=== PATIENT | female | born 1950 | race African-American/Black ===

== ENCOUNTER 2016-11-15 15:43 | Emergency (ER) | payer OTHER ==
[~2016-11-15] VITALS: Ht 154.9 cm; Wt 57.6 kg
--- NOTE | ~2016-11-15 | EKG ---
[address] [address] ELECTROCARDIOGRAM REPORT Name: JEREMIAS LEHMAN Room #: [facility] M.RSu#: [id number] Admission: Attend Phys: Discharge: Date of : 52 Report #: [id number] THIS REPORT FOR: //name// [facility] ED Test Date: 2016-11-15 Test Time: 16:03:09 Pat Name: JEREMIAS LEHMAN Department: Room: Gender: F Quality Control Engineer: TOBIN : 1950 Requested By: Lilli Sanches Order Number: [id number] MD: Measurements Intervals [place] Rate: 84 P: -7 [place]: 104 QRS: 24 QRSD: 77 T: 10 QT: 404 QTc: 478 Interpretive Statements Sinus rhythm Short [place] interval No previous ECG available for comparison [email or web address] By: 1603 1603 Epiphany MD Elsa /EPI
[2016-11-15] MEDS ORDERED: NORVASC 5 MG TAB5 MG PO (15:54)
[2016-11-15] MEDS ORDERED: NEURONTIN 300300 M1 PO (15:55)
[2016-11-15] MEDS ORDERED: SEROQUEL 50 MG50 MG PO (15:56)
[2016-11-15] MEDS ORDERED: TRAZODONE HCL100 MG PO (15:56)
[2016-11-15 16:09] LABS: HEMOGLOBIN 13.1 gm/dL (12.0-15.0); MCH 30.8 pg (26.0-34.0); MCHC 33.5 g/dL (28.0-37.0); MCV 91.9 fL (80.0-100.0); PLATELET COUNT 278 thou/uL (150-400); RBC 4.24 mil/uL (4.20-5.00); RDW 14.2 % (10.5-14.5)
[2016-11-15 16:10] LABS: MANUAL DIFF YES
[2016-11-15 16:15] LABS: CALCIUM 8.9 mg/dL (8.5-10.1); POTASSIUM 3.3 mmol/L (3.5-5.1)
[2016-11-15] MEDS ORDERED: NORCO 5-325 TA1 EACH PO (16:26)
[2016-11-15 16:32] LABS: ABSOLUTE NEUTROPHILS 3.6 thou/uL (1.4-8.2); TOTAL CELL COUNT 100
[2016-11-15 16:34] LABS: ANISOCYTOSIS 1+
[2016-11-15 16:35] LABS: POLYCHROMASIA OCCASIONAL
[2016-11-15 16:44] VITALS: BP 128/52
== END 2016-11-15 16:45 | disposition home or self-care (01) ==
LOC: ER 15:43
PROVIDERS: Emergency Medicine
DX: M62.830 Muscle spasm of back (principal); E87.6 Hypokalemia; F17.210 Nicotine dependence, cigarettes, uncomplicated; Z88.6 Allergy status to analgesic agent

== ENCOUNTER 2020-01-18 19:50 | Inpatient (IN) | payer OTHER ==
[~2020-01-18] VITALS: Ht 154.9 cm; Wt 70.3 kg
[~2020-01-18 19:50] MED LIST: NEURONTIN 300300 M1 PO; NORCO 5-325 TA1 EACH PO; NORVASC 5 MG TAB5 MG PO; SEROQUEL 50 MG50 MG PO; TRAZODONE HCL100 MG PO
[2020-01-18 20:34] VITALS: BP 156/58
[2020-01-18 21:03] LABS: ABSOLUTE NEUTROPHILS 2.9 thou/uL (1.4-8.2); EOSINOPHILS 1.1 % (0.0-3.0); HEMATOCRIT 37.8 % (37.0-47.0); HEMOGLOBIN 12.5 gm/dL (12.0-15.0); MCH 32.6 pg (26.0-34.0); MCHC 33.1 g/dL (28.0-37.0); MCV 98.3 fL (80.0-100.0); MONOCYTES 10.5 % (1.0-8.0); PLATELET COUNT 212 thou/uL (150-400); POLYS 52.4 % (36.0-66.0); RBC 3.84 mil/uL (4.20-5.00); RDW 14.6 % (10.5-14.5); WBC 5.6 thou/uL (4.0-11.0)
[2020-01-18 21:07] LABS: ANION GAP 7 mmol/L (7-16); BUN 9 mg/dL (7-18); CALCIUM 7.6 mg/dL (8.5-10.1); CHLORIDE 102 mmol/L (98-107); CO2 27 mmol/L (21-32); GLUCOSE 75 mg/dL (74-106); POTASSIUM 3.7 mmol/L (3.5-5.1); SODIUM 136 mmol/L (136-145)
[2020-01-18 21:14] LABS: APTT 24.5 Seconds (24.5-32.8); PROTIME 10.5 Seconds (9.3-11.4)
[2020-01-18 21:21] LABS: ALBUMIN 3.2 g/dL (3.4-5.0); SGOT 18 U/L (15-37); SGPT 12 U/L (30-65); TOTAL BILIRUBIN 0.6 mg/dL (0.2-1.0); TOTAL PROTEIN 6.6 g/dL (6.4-8.2)
[2020-01-18 21:25] LABS: DIRECT BILIRUBIN < 0.1 mg/dL (<0.1-0.2)
[2020-01-18 22:13] VITALS: BP 155/76
[2020-01-18 22:24] VITALS: BP 156/74
[2020-01-18 22:43] VITALS: BP 190/80
[2020-01-18 23:00] VITALS: BP 180/57
--- NOTE | 2020-01-18 23:20 | NUR ---
PT ADMIT FROM ER FOR STROKE. REPORTS SHE WOKE UP AND HER RIGHT SIDE OF ARM WAS WEAK. SLUR SPEECH NOTED. AND SLIGHT FACIAL DROOPING NOTED. BLOOD PRESSURE IS HIGH SHE REPORTS SHE DIDNT TAKE HER BLOOD PRESSURE MEDICAION TODAY. NIH SCORE IS 4. CALL LIGHT WITHIN REACH IF NEEDS ASSISTANCE. FALL SOCKS ON AND FALL CONTRACT SIGNED FOR ADMISSION. DENIES ANY PAIN AT THIS TIME. WILL CONTINUE TO ASSESS AND MONITOR PER NURSING
[2020-01-19 00:08] LABS: CHOLESTEROL 153 mg/dL (<200); SERUM ASSESSMENT Clear
[2020-01-19 00:09] LABS: HDL CHOLESTEROL 64 mg/dL (>40); LDL CHOLESTEROL 71 mg/dL (<100); TC:HDL 2.4 Ratio (Not establshd); TRIGLYCERIDE 93 mg/dL (<150); VLDL 19 mg/dL (<40)
[2020-01-19 02:20] VITALS: BP 123/45
[2020-01-19 03:49] VITALS: BP 162/57
[2020-01-19 04:00] LABS: HEMATOCRIT 37.4 % (37.0-47.0); HEMOGLOBIN 12.3 gm/dL (12.0-15.0); MCH 32.5 pg (26.0-34.0); MCHC 32.9 g/dL (28.0-37.0); MCV 98.8 fL (80.0-100.0); RBC 3.79 mil/uL (4.20-5.00); RDW 14.4 % (10.5-14.5); WBC 6.7 thou/uL (4.0-11.0)
[2020-01-19 05:28] LABS: CALCIUM 7.7 mg/dL (8.5-10.1); CREATININE 0.9 mg/dL (0.6-1.0); MAGNESIUM 1.9 mg/dL (1.8-2.4); POTASSIUM 3.7 mmol/L (3.5-5.1)
[2020-01-19 07:39] VITALS: BP 148/62
--- NOTE | 2020-01-19 09:35 | EKG ---
[facility] [place] [address] ELECTROCARDIOGRAM REPORT Name: JEREMIAS LEHMAN Room #: 217-P ADM IN M.R.#: [id number] Admission: 01/18/20 Attend Phys: Anuj Young MD Discharge: Date of : 52 Report #: [id number] THIS REPORT FOR: cc: Yodit Rios Diane C. DO Couchonnal, Luis F. MD ~ THIS REPORT FOR: //name// [facility] ED Test Date: 2020-01-18 Test Time: 20:37:35 Pat Name: JEREMIAS LEHMAN Department: Room: 217 Gender: F Drilling Field Professional: [id number] : 1950 Requested By: Ailin Jane Order Number: [id number] MD: Gee Qureshi Measurements Intervals [place] Rate: 75 P: 70 [place]: 134 QRS: 60 QRSD: 85 T: 43 QT: 409 QTc: 457 Interpretive Statements Sinus rhythm Baseline wander in lead(s) I Compared to ECG 11/15/2016 16:03:09 Short [place] interval no longer present Electronically Signed On 01-19-2020 9:33:24 CDT by Gee Qureshi [email or web address] <ELECTRONICALLY SIGNED> By: Gee Qureshi MD 01/19/2033 36 36 Gee Qureshi MD /EPI
[2020-01-19 11:32] VITALS: BP 125/53
[2020-01-19 15:24] VITALS: BP 127/50
--- NOTE | 2020-01-19 19:34 | NUR ---
ASSUMED CARE OF PATIENT AT 0700. ASSESSMENT CHARTED. PATIENT DENIES ANY RIGHT SIDED NUMBNESS/LOSS OF SENSATION, FACIAL DROOPING OR SLURRED SPEECH. SR ON TELE. NICOTINE PATCH REQUESTED, PATIENT IS A 7 CIGARETTE/DAY SMOKER. MRI ORDERED, PATIENT HAS SCREWS IN NECK FROM CERVICAL SURGERY. PATIENT STEADY ON FEET BUT STILL ASKED TO CALL OUT FOR GETTING UP, BED ALARM SET. SPEECH EVAL DONE, NO STRAWS TO BE USED WITH MECH/SOFT CHOPPED DIET. PATIENT LEFT PARTIAL AT HOME. PATIENT DOES NOT WANT TO STAY, WANTS TO GET HOME TO HER DOG. SPOKE WITH PATIENT'S DAUGHTER WHO ENCOURAGED PATIENT TO STAY. PATIENT TO CONTINUE WITH POC.
[2020-01-19 20:10] VITALS: BP 128/73
--- NOTE | 2020-01-19 23:31 | NUR ---
ASSESSMENTS CHARTED, MEDS GIVEN CHARTED. PATIENT RESTING IN BED DURING SHIFT. DOES NOT WANT TO STAY, WANTS TO BE HOME WITH HER FAMILY AND DOG. DAY NURSE CONVINCES TO STAY THROUGH NIGHT. DUE TO RESULTS FROM MRI OF HEAD, A CONSULT WITH DR. ALFONSO HAS BEEN STARTED. CVA AFFECTS HAVE RESOLVED. FALL PRECAUTIONS IN PLACE. DENIES PAIN.
[2020-01-20 00:01] VITALS: BP 112/61
[2020-01-20 05:05] VITALS: BP 139/57
[2020-01-20 05:38] LABS: GLYCOHEMOGLOBIN (HGB A1C) 5.2 % (4.8-5.6)
[2020-01-20 07:29] VITALS: BP 144/53
[2020-01-20 11:31] VITALS: BP 135/50
[2020-01-20 15:23] VITALS: BP 132/54
--- NOTE | 2020-01-20 19:31 | NUR ---
ASSUMED CARE OF PATIENT AT 0700. ASSESSMENT COMPLETED. NIH ZERO. EQUAL UE STRENGTH, NO SLURRED SPEECH, NO FACIAL DROOPING. SR ON TELE. NICOTINE PATCH ON LEFT SHOULDER, PATIENT NOTES "HELP OF PATCH" LAST NIGHT. PATIENT SEEN BY DR. ALFONSO AND WILL FOLLOW UP OUTPATIENT. DR. ORTIZ ORDERED ECHO, US CAROTIDS AND CARDIOLOGY CONSULT FOR EVENT MONITOR TO R/O SILENT AFIB TO BE DONE TUESDAY A.M. PATIENT INITIALLY REFUSED TO STAY AND SAID SHE WOULD LEAVE AMA. PATIENT'S DAUGHTER TALKED HER INTO STAYING. PATIENT TO CONTINUE WITH POC.
[2020-01-20 19:58] VITALS: BP 135/53
[2020-01-21 05:47] VITALS: BP 135/52
--- NOTE | 2020-01-21 06:15 | NUR ---
ASSESSMENTS CHARTED, MEDS GIVEN CHARTED. PATIENT RESTING IN ROOM DURING SHIFT. PATIENT NOT WANTING TO STAY AT START OF SHIFT, SHE WAS UNDER THE IMPRESSIION THAT SHE WOULD BE GOING HOME AFTER HER CONSULT WITH DR. ALFONSO, BUT PROCEDURES ARE SCHEDULED FOR THE AM. TO HAVE AN ECHO AND EVENT MONITOR PLACED. DENIED PAIN OR CONCERNS DURING SHIFT.
[2020-01-21 08:00] VITALS: BP 150/56; BP 162/83
--- NOTE | 2020-01-21 08:34 | EKG ---
[facility] Mans[address] [facility] [place] [address] ELECTROCARDIOGRAM REPORT Name: JEREMIAS LEHMAN Room #: 217-P ADM IN M.R.#: [id number] Admission: 01/18/20 Attend Phys: Javier Christopher MD Discharge: Date of : 52 Report #: [id number] THIS REPORT FOR: cc: Yodit Rios,Yodit Sanchez,Brent Lassiter MD [facility] ~ THIS REPORT FOR: //name// [facility] Test Date: 2020-01-21 Test Time: 07:55:57 Pat Name: JEREMIAS LEHMAN Department: Room: 217 P Gender: F General Distillery Worker: Aishwarya SORIANO : 1950 Requested By: Aspen Tate Order Number: [id number] MD: Brent Michael Measurements Intervals [place] Rate: 53 P: 70 RI: 152 QRS: 56 QRSD: 84 T: 35 QT: 477 QTc: 448 Interpretive Statements Sinus bradycardia Anteroseptal infarct, age indeterminate Compared to ECG 01/18/2020 20:37:35 Septal Q waves are now present Electronically Signed On 01-21-2020 8:32:05 CDT by Brent Michael [email or web address] <ELECTRONICALLY SIGNED> By: Brent Michael MD, [facility] 01/21/20 0832 [id number] [id number] Brent Michael MD, [facility] /EPI
[2020-01-21 12:00] VITALS: BP 122/53
--- NOTE | 2020-01-21 12:24 | HC ---
[facility] [place] [address] CONSULTATION Name: JEREMIAS LEHMAN Room #: 217-P ADM IN M.R.#: [id number] Admission: 01/18/20 Attend Phys: Javier Christopher MD Discharge: Date of : 52 Report #: [id number] THIS REPORT FOR: cc: Yodit Rios,Kt Jenkins MD ~ CC: Yodit Christopher DATE OF SERVICE: 01/20/2020 We were asked by Dr. Reed to see the patient. HISTORY OF PRESENT ILLNESS: The patient is a 69-year-old admitted 01/18/2020 with right upper extremity and lower extremity weakness and right-sided facial drooping and slurred speech. CT scan was negative for any acute abnormality, but CT angiogram showed a 50% stenosis at the origin of the left internal carotid and the MRI showed a small acute lacunar infarct. The patient was noted to be relatively hypertensive at the time of admission. Over the course of the hospitalization, the patient states that her symptoms have abated and that she is close to normal. PAST MEDICAL HISTORY: Significant for hypertension, anxiety, and depression. ALLERGIES: The patient states she is allergic to ASPIRIN. Specifically, the patient states that years ago she took an aspirin and this made her dizzy and that she is unwilling to take aspirin here too in the future. The patient denies diabetes to me. MEDICATIONS AT HOME: Amlodipine, gabapentin, Seroquel, trazodone. SOCIAL HISTORY: The patient is a smoker at home. REVIEW OF SYSTEMS: CONSTITUTIONAL: Denies fever, chills, weight change. EYES: Denies vision changes. HEENT: Denies headache, earache. Nose or throat discomfort. RESPIRATORY: Denies cough, shortness of breath, hemoptysis. CARDIAC: Denies chest pain, palpitations. GASTROINTESTINAL: Denies nausea, vomiting, diarrhea, blood. GENITOURINARY: Denies urgency, frequency, or blood. 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 NEUROLOGIC: Denies other motor or sensory dysfunction other than the pain in the right breast. [address] [address] CONSULTATION Name: JEREMIAS LEHMAN Room #: 217-[facility] IN ..#: [id number] Admission: 01/18/20 Attend Phys: Javier Christopher MD Discharge: Date of : 52 Report #: [id number] SKIN: Denies rash or infection. ENDOCRINE: Denies goiter or palpitations. PHYSICAL EXAMINATION: GENERAL: The patient is in bed, seems comfortable. VITAL SIGNS: Temperature 36.9, pulse rate 72, respiratory rate 16, blood pressure 132/54. HEENT: No scleral icterus, no arcus. NECK: No mass. I do not hear any bruit, but I cannot get the patient to hold her breath. CHEST: Clear to auscultation. HEART: Rhythm regular. I do not hear any murmurs. ABDOMEN: Soft, somewhat protuberant, no mass. EXTREMITIES: Distal pulses palpable. No clubbing, cyanosis or edema. NEUROLOGIC: No obvious motor or sensory dysfunction. IMPRESSION: I have reviewed CT scan. There is a stenosis at the origin of the left internal carotid. This does not appear to be a high-grade, but it is very focal. I would recommend obtaining a duplex evaluation to see if there is any high frequency associated with this. There is either a prominent carotid bulb or poststenotic dilatation. In any event, the duplex may be able to help define the stenosis better, especially as this appears to be a lacunar infarct, anticoagulation what appeared to be the proper approach for this less than high-grade, but the duplex may help with this assessment. Thank you for the consult. <ELECTRONICALLY SIGNED> By: Kt Spain MD 01/21/20 1224 [id number] [id number] Kt Spain MD /nt
--- NOTE | 2020-01-21 13:28 | 2DMMODE ---
[address] [address] 2 D/M-MODE ECHOCARDIOGRAM Name: JEREMIAS LEHMAN Room #: 217-P ADM IN M.R.#: [id number] Admission: 01/18/20 Attend Phys: Javier Christopher MD Discharge: Date of : 52 Report #: [id number] THIS REPORT FOR: cc: Yodit Rios,Brent Ruth MD [facility] ~ APPROVED REPORT Study performed: 01/21/2020 11:41:15 EXAM: Comprehensive 2D, Doppler, and color-flow Echocardiogram Patient Location: Bedside Room #: [facility] Status: routine BSA: 1.67 HR: 78 bpm BP: 150/56 mmHg Rhythm: NSR Other Information Study Quality: Adequate Indications CVA/TIA Hypertension/HDD Echo Enhancing Agent Indication: Rule out Shunt Agent(s) / Amount(s) Used: Agitated Saline 7 cc Agitated Saline 7 cc 2D Dimensions IVC: 21.00 mm Volumes Left Atrial Volume (Systole) LA ESV Index: 24.00 mL/m2 Tricuspid Valve PA Pressure: 44.00 mmHg Left Ventricle The left ventricle is normal size. There is normal LV segmental wall motion. There is normal left ventricular wall thickness. The left [address] [address] 2 D/M-MODE ECHOCARDIOGRAM Name: JEREMIAS LEHMAN Room #: [facility] ADM IN M.R.#: [id number] Admission: 01/18/20 Attend Phys: Javier Christopher MD Discharge: Date of : 52 Report #: [id number] ventricular systolic function is normal. The left ventricular ejection fraction is within the normal range. LVEF is 55-60%. The left ventricular diastolic function is normal. Right Ventricle The right ventricle is normal size. The right ventricular systolic function is normal. Atria The left atrium size is normal. No shunting by contrast bubble injection The right atrium size is normal. Aortic Valve The aortic valve is normal in structure. No aortic regurgitation is present. There is no aortic valvular stenosis. Mitral Valve The mitral valve is normal in structure. Mild mitral regurgitation. No evidence of mitral valve stenosis. Tricuspid Valve The tricuspid valve is normal in structure. There is mild tricuspid regurgitation. Estimated PAP 40 mmHg. Pulmonic Valve The pulmonary valve is normal in structure. There is no pulmonic valvular regurgitation. Great Vessels The aortic root is normal in size. IVC is dilated and collapses >50% with inspiration. Pericardium There is no pericardial effusion. <Conclusion> The left ventricular systolic function is normal. There is normal LV segmental wall motion. LVEF is 55-60%. Normal diastolic function No shunting by contrast bubble injection The aortic valve is normal in structure. No aortic regurgitation or stenosis The mitral valve is normal in structure. Mild mitral regurgitation. There is mild tricuspid regurgitation. Estimated pulmonary artery [facility] [address] [place] [address] 2 D/M-MODE ECHOCARDIOGRAM Name: MATTEO LEHMANGARFIELD Martino Room #: 217-P ADM IN M.R.#: [id number] Admission: 01/18/20 Attend Phys: Javier Christopher MD Discharge: Date of : 52 Report #: [id number] pressure of 40 mmHg. There is no pericardial effusion. <ELECTRONICALLY SIGNED> By: Brent Michael MD, FACC 01/21/20 1325 24 24 Bernt Michael MD, FACC /INF
--- NOTE | 2020-01-21 15:24 | NUR ---
ASSUMED CARE OF PT AT CHANGE OF SHIFT. PT ALERT X4, DENIES PAIN, DENIES SOB, COMPLETED US CAROTID AND ECHO COMPLETED SEE REPORT. CARDIOLOGY PLACED AN EVENT MONITOR. PT EDUCATED TO HAVE AN OUTPATIENT STRESS TEST. PT TO DC HOME WITH SELF CARE. NSR ON TELE. DC PAPER WORK REVIEWED IV AND TELE REMOVED.
[2020-01-21] MEDS ORDERED: PLAVIX 75 MG TA75 M1 PO (15:32)
[2020-01-21] MEDS ORDERED: LIPITOR 20 MG T20 M1 PO (15:32)
[2020-01-21] MEDS ORDERED: AMLODIPINE BESY10 MG PO (15:33)
[2020-01-21 15:56] VITALS: BP 122/53
--- NOTE | 2020-01-21 18:41 | HC ---
[facility] [place] [address] CONSULTATION Name: JEREMIAS LEHMAN Room #: 217-P [facility] IN .R.#: [id number] Admission: 01/18/20 Attend Phys: Javier Christopher MD Discharge: 01/21/20 Date of : 52 Report #: [id number] THIS REPORT FOR: cc: Yodit Rios,Finn Saucedo MD ~ CC: Anuj Rios DATE OF SERVICE: 01/19/2020 HISTORY OF PRESENT ILLNESS: A 69-year-old female patient who was seen by me for episode of stroke-like symptoms. This patient complained of right upper extremity and right lower extremities weakness with slurred speech. It was sudden onset. Symptoms have completely resolved since that time. She underwent a CT angiogram, which demonstrated carotid stenosis. Stenosis is estimated to be about 50%. She never had this kind of symptoms before. She indicates SHE IS ALLERGIC TO ASPIRIN, but gives a pretty poorly defined history of allergies that makes her dizzy and she wound not take aspirin. REVIEW OF SYSTEMS: Positive for anxiety, depression and hypertension. She received a dose of Plavix. She was outside the window for TPA. When she came there, the patient was discussed with Dr. Jane last night. She had a hysterectomy and a semispinal fusion and a in the past. She does have a history of back pain. That was a relevant 14-point review of system. PAST MEDICAL HISTORY: Positive for anxiety. FAMILY HISTORY: Unremarkable. Positive for AR. SOCIAL HISTORY: She occasionally drinks. She does have a history of smoking. PHYSICAL EXAMINATION: Indicates she is alert. She is responsive. She is able to follow simple and complex command. Her speech, concentration, fund of knowledge is at her baseline. Cranial nerve examination 2-12 looks unremarkable. Neuromuscular examination as checked for strength, sensation, reflexes and tone is unremarkable. There is no cerebellar sign. I could not look at the fundus. The patient is moderately built individual, who does not have any dysmorphic features of eyes, ears and face. Pulses are difficult to feel. There is no edema, cyanosis or jaundice. She has adequate hearing and vision. She has no thyroid mass. There is no carotid bruit. Blood pressure is 127/50, pulse is 68, temperature is 98.2. LABORATORY DATA: Indicates a WBC count, which is normal. Her glucose is 4.4, calcium is 7.7 and LDL is only 71. [facility] [address] [place] [address] CONSULTATION Name: JEREMIAS LEHMAN Room #: [address] [place] [address]#: [id number] Admission: 01/18/20 Attend Phys: Javier Christopher MD Discharge: 01/21/20 Date of : 52 Report #: [id number] IMAGING STUDIES: CT angiogram is as described above. IMPRESSION: The patient's clinical presentation is consistent with either TIA or stroke. I told her to stay here and get the workup done on Tuesday, but she is adamant that she is leaving today. Because of that, I went ahead and ordered an MRI on her. I did put a consult with Dr. Spain to evaluate the carotid. She has a 50% stenosis. If she had a 70% stenosis or more, she would have been a definite candidate for endarterectomy between 50-70. It is discretionary. RECOMMENDATIONS: 1. Plavix. She got 600 mg loading dose and she should have 75 mg p.o. daily. 2. She will not take aspirin. 3. Statin is optional since LDL is 71, but I will suggest that. 4. She must stop smoking. 5. She needs some more workup like sed rate, homocysteine, cardiolipin antibodies which can be done as an outpatient. The patient really wants to go home, do not want to wait until we can so of what was done. Thank you very much for this referral. <ELECTRONICALLY SIGNED> By: Finn Reed MD 01/21/20 1841 [id number] [id number] Finn Reed MD /nt
== END 2020-01-21 16:47 | disposition home or self-care (01) | DRG 65 ==
LOC: ER 19:50 → 2N 21:44 → EROBS 21:44 → 2N 23:04
PROVIDERS: Emergency Medicine; Nurse Practitioner Family; ADMIT Internal Medicine
DX: I63.81 Other cerebral infarction due to occlusion or stenosis of small artery (principal); I69.351 Hemiplegia and hemiparesis following cerebral infarction affecting right dominant side; I65.22 Occlusion and stenosis of left carotid artery; I69.392 Facial weakness following cerebral infarction; I10 Essential (primary) hypertension; F41.9 Anxiety disorder, unspecified; F32.9 Major depressive disorder, single episode, unspecified; M25.519 Pain in unspecified shoulder; G47.00 Insomnia, unspecified; E78.5 Hyperlipidemia, unspecified; F17.210 Nicotine dependence, cigarettes, uncomplicated; G89.29 Other chronic pain; Z79.891 Long term (current) use of opiate analgesic; Z79.899 Other long term (current) drug therapy; Z88.8 Allergy status to other drugs, medicaments and biological substances; Z82.49 Family history of ischemic heart disease and other diseases of the circulatory system; Z90.710 Acquired absence of both cervix and uterus; Z98.1 Arthrodesis status; Z83.3 Family history of diabetes mellitus; I69.320 Aphasia following cerebral infarction
CPT/HCPCS: 10081